=== PATIENT | male | born 1965 | race Caucasian/White ===

== ENCOUNTER 2023-03-07 17:31 | Emergency (ER) | payer BC, OTHER ==
[2023-03-07 22:10] LABS: #Eosinphils 0.2 10x3/uL (0.0-0.5); #Monocytes 1.2 10x3/uL (0.0-1.1); #Neutrophils 6.7 10x3/uL (1.5-8.4); %Basophils 0.3 % (0.0-2.0); %Eosinophils 1.5 % (0.0-6.0); %Lymphocytes 16.6 % (18.0-47.0); %Monocytes 12.6 % (0.0-10.0); %Neutrophils 68.9 % (40.0-75.0); Hemoglobin 13.7 g/dL (13.5-17.5); Mean Corpuscular HGB CONC 34.3 g/dL (32.0-36.0); Mean Corpuscular Hemoglobin 30.5 pg (27.0-33.0); Mean Corpuscular Volume 89.1 fl (81.2-95.1); Mean Platelet Volume 10.1 fl (7.4-10.4); Platelet Count 274 10x3/uL (150-450); RBC Distribution Width 12.5 % (11.5-14.5); Red Blood Cell (RBC) Count 4.49 10x6/uL (4.32-5.72); White Blood Cell (WBC) Count 9.7 10x3/uL (3.5-10.5)
[2023-03-07 22:25] LABS: ALT (SGPT) 16 U/L (8-55); AST (SGOT) 19 U/L (5-34); Albumin 4.5 g/dL (3.5-5.0); Alkaline Phosphatase 79 U/L (40-110); Anion Gap 14 mmol/L (10-20); BUN (Urea Nitrogen) 16 mg/dL (8.4-25.7); Bilirubin, Total 0.7 mg/dL (0.2-1.2); Calc. Creatinine Clearance 0 mL/min (70-130); Calcium 9.4 mg/dL (7.8-10.44); Carbon Dioxide 26 mmol/L (22-29); Chloride 106 mmol/L (98-107); Estimated GFR 86; Globulin 2.5 g/dL (2.4-3.5); Glucose 74 mg/dL (70-105); Potassium 3.7 mmol/L (3.5-5.1); Sodium 142 mmol/L (136-145)
[2023-03-07] MEDS ORDERED: HYDROcodone/Acetaminophen 5/325 mg Tablet ONE (23:12)
== END 2023-03-07 23:25 | disposition home or self-care (01) ==
LOC: CSHERS 17:31
DX: S81.812A Laceration without foreign body, left lower leg, initial encounter (principal); W11.XXXA Fall on and from ladder, initial encounter
CPT/HCPCS: 74177; 80053; 85025

== ENCOUNTER 2023-08-29 10:53 | Day surgery (SDC) | payer OTHER ==
[2023-08-26 15:35] VITALS: BMI 28.1
[2023-08-29] MEDS ORDERED: PROPOFOL 40 ML ONE (14:42)
== END 2023-08-29 15:35 | disposition home or self-care (01) ==
LOC: CSHSDC 10:53
PROVIDERS: ATTEND Internal Medicine Gastroenterology
PROC: 0DJD8ZZ Inspection of Lower Intestinal Tract, Via Natural or Artificial Opening Endoscopic (ICD-10-PCS; principal; 2023-08-29)
DX: Z12.11 Encounter for screening for malignant neoplasm of colon (principal); K57.30 Diverticulosis of large intestine without perforation or abscess without bleeding; K64.9 Unspecified hemorrhoids; I10 Essential (primary) hypertension; E78.5 Hyperlipidemia, unspecified; Z90.49 Acquired absence of other specified parts of digestive tract
CPT/HCPCS: J2704